=== PATIENT | female | born 1950 ===

== ENCOUNTER 2016-11-25 18:23 | Emergency (ER) | payer MEDICARE, MEDICAID ==
[2016-11-25] MEDS ORDERED: 0.9 % SODIUM CHLORIDE 1,000 ML BAG IV ONE (18:43)
--- NOTE | 2016-11-25 18:47 | Emergency Department Record ---
History of Present Illness - General Chief Complaint: Abdominal Pain Stated Complaint: SWOLLEN PAINFUL ABD/ LIVER FAILURE Time Seen by Provider: 11/25/16 18:42 Source: Patient Mode of Arrival: Ambulatory Limitations: No limitations - History of Present Illness Initial Comments: 66 yo female presents with abdominal pain and lower leg edema over the last 2 months. The patient has a history of liver cirrhosis of unknown etiology. Over the last few months she has had some increase in abdominal distension and lower leg symmetric swelling. She had out patient venous dopplers that were negative. No fevers or chills. No nausea or vomiting. She has chronic diarrhea from her long history of Crohn's disease. She is concerned because of the edema in the legs and she is in between PCP's. MD Complaint: Abdominal pain -: Week(s) Location: Diffuse Radiation: Other Migration to: Other Severity: Mild Quality: Aching Improves With: Nothing Worsens With: Nothing - Related Data Home Medications Medication Instructions Recorded Confirmed Last Taken Albuterol Sulfate [Ventolin Hfa] 1 puff IH ASDIR 11/25/16 11/25/16 Unknown Beclomethasone Dipropionate [Qvar 8.7 gm IH ASDIR 11/25/16 11/25/16 Unknown 80 Mcg Inhaler] Citalopram Hydrobromide [Celexa] 40 mg PO DAILY 11/25/16 11/25/16 Unknown Clonazepam [Klonopin] 0.5 mg PO QHS 11/25/16 11/25/16 Unknown Cyanocobalamin (Vitamin B-12) 1,000 mcg IJ MONTHLY 11/25/16 11/25/16 Unknown [Cyanocobalamin Injection] Folic Acid 1 mg PO DAILY 11/25/16 11/25/16 Unknown Loperamide HCl [Imodium A-D] 2 mg PO ASDIR 11/25/16 11/25/16 Unknown Loratadine [Claritin] 10 mg PO DAILY 11/25/16 11/25/16 Unknown Mesalamine [Pentasa] 500 mg PO BID 11/25/16 11/25/16 Unknown Omeprazole [Prilosec] 20 mg PO DAILY 11/25/16 11/25/16 Unknown Potassium Chloride 20 meq PO Q8H 11/25/16 11/25/16 Unknown Ranitidine HCl [Zantac] 150 mg PO DAILY 11/25/16 11/25/16 Unknown Rivaroxaban [Xarelto] 10 mg PO DAILY 11/25/16 11/25/16 Unknown Sucralfate [Carafate] 1 gm PO DAILY 11/25/16 11/25/16 Unknown Previous Rx's Medication Instructions Recorded Furosemide [Lasix] 20 mg PO DAILY #14 tablet 11/25/16 Potassium Chloride [Klor-Con M20] 20 meq PO DAILY #7 tab.er.prt 11/25/16 Allergies Allergy/AdvReac Type Severity Reaction Status Date / Time aspirin Allergy PT UNSURE Verified 11/25/16 18:59 OF REACTION Penicillins Allergy HIVES Verified 11/25/16 18:59 sulfamethoxazole Allergy BLISTERS Verified 11/25/16 18:59 [From Bactrim] trimethoprim [From Bactrim] Allergy BLISTERS Verified 11/25/16 18:59 Review of Systems Constitutional: Denies: Chills, Fever, Weakness Eyes: Denies: Eye discharge, Photophobia ENT: Denies: Congestion, Throat pain Respiratory: Denies: Cough, Hemoptysis, Stridor Cardiovascular: Reports: As per HPI, Edema. Denies: Chest pain, Palpitations, Syncope Endocrine: Reports: Fatigue Gastrointestinal: Reports: As per HPI, Abdominal pain, Diarrhea. Denies: Constipation, Hematemesis, Hematochezia, Melena, Nausea, Vomiting Genitourinary: Denies: Dysuria, Urgency Musculoskeletal: Denies: Arthralgia, Joint swelling, Myalgia, Neck pain Skin: Denies: Bruising, Change in color, Pruritus Neurological: Denies: Confusion, Headache, Numbness Psychiatric: Denies: Anxiety Hematological/Lymphatic: Denies: Blood Clots, Easy bleeding, Easy bruising, Swollen glands Physical Exam - General General Appearance: Alert, Oriented x3, No acute distress Limitations: No limitations - Head Head exam: Atraumatic, Normocephalic, Normal inspection - Eye Eye exam: PERRL. negative: Conjunctival injection, Periorbital swelling - ENT ENT exam: Normal exam, Mucous membranes moist Ear exam: Normal external inspection Nasal Exam: Normal inspection Mouth exam: Normal external inspection Teeth exam: Normal inspection Throat exam: Normal inspection - Neck Neck exam: Normal inspection, Full ROM. negative: Tenderness - Respiratory Respiratory exam: Normal lung sounds bilaterally. negative: Decreased breath sounds, Respiratory distress, Rhonchi, Stridor, Wheezes - Cardiovascular Cardiovascular Exam: Regular rate, Normal rhythm, Normal heart sounds - GI/Abdominal GI/Abdominal exam: Soft, Tenderness (mild diffuse, very soft and non distended) . negative: Distended, Guarding, Rebound, Rigid - Rectal Rectal exam: Deferred - exam: Deferred - Extremities Extremities exam: Normal inspection, Full ROM, Normal capillary refill, Pedal edema (bilateral +2 edema). negative: Tenderness - Back Back exam: Reports: Normal inspection, Full ROM. Denies: CVA tenderness (R), CVA tenderness (L), Muscle spasm, Rash noted, Tenderness - Neurological Neurological exam: Alert, Normal gait, Oriented X3. negative: Altered - Psychiatric Psychiatric exam: Normal affect, Normal mood. negative: Agitated, Anxious - Skin Skin exam: Dry, Intact, Normal color, Warm Course - Reevaluation(s) Reevaluation #1: The EMR was reviewed. No recent prior visits or labs. 11/25/16 18:46 Reevaluation #2: The remaining labs were reviewed She does have trace protein in the urine and low albumin and serum protein likely contributing to her edema She will be sent home on lasix and potassium with referral to local PCP and recommendation for GI follow up this week regarding her chronic liver disease 11/25/16 20:37 Medical Decision Making - Lab Data Result diagrams: 11/25/16 19:05 11/25/16 19:05 Disposition Disposition: Discharge Clinical Impression: Edema, Chronic liver disease Disposition: Home, Self-Care Condition: (1) Good Instructions: Leg Edema (ED), Cirrhosis (ED) Additional Instructions: Call your GI doctor tomorrow Take the Lasix and Potassium as directed You will need to call for a new family doctor this week Prescriptions: Furosemide [Lasix] 20 mg PO DAILY #14 tablet Potassium Chloride [Klor-Con M20] 20 meq PO DAILY #7 tab.er.prt Forms: Patient Portal Access Time of Disposition: 20:40
[2016-11-25 19:13] LABS: HEMATOCRIT 35.7 % (35.0-47.0); HEMOGLOBIN 12.1 gm/dl (11.6-16.0); MEAN CELL VOLUME 91.8 fl (81-97); MEAN CORPUSCULAR HEMOGLOBIN 31.1 pg (27-33); MEAN CORPUSCULAR HGB CONC 33.9 g/dl (32-36); MEAN PLATELET VOLUME 11.2 fl (7.4-10.4); PLATELET COUNT 88 K/uL (130-400); RED BLOOD COUNT 3.89 M/uL (3.80-5.40); RED CELL DISTRIBUTION WIDTH 17.2 % (11.5-14.5); WHITE BLOOD COUNT W/O DIFF 5.8 K/uL (4.2-12.2)
[2016-11-25 19:23] LABS: ALBUMIN 2.3 gm/dL (3.5-5.0); ALKALINE PHOSPHATASE 113 U/L (38-126); ALT/SGPT 38 U/L (9-52); ANION GAP 1.6 (7-16); AST/SGOT 50 U/L (14-36); BILIRUBIN,TOTAL 2.36 mg/dL (0.2-1.3); BLOOD UREA NITROGEN 5 mg/dL (7-17); CARBON DIOXIDE 22.4 mmol/L (22-30); CREATININE 0.8 mg/dL (0.52-1.04); EST GLOMERULAR FILTRATION RATE > 60 ml/min; GLUCOSE,RANDOM 96 mg/dL (70-110); LIPASE 211 U/L (23-300); TOTAL PROTEIN 5.5 gm/dL (6.3-8.2)
[2016-11-25 19:40] LABS: PLATELET ESTIMATE DECREASED (NORMAL)
[2016-11-25 19:42] LABS: INR 1.73; PARTIAL THROMBOPLASTIN TIME 49.4 SECONDS (24.5-39.1); PROTHROMBIN TIME (PATIENT) 19.6 SECONDS (9.5-12.1)
[2016-11-25 20:22] LABS: THYROID STIMULATING HORMONE 0.96 uIU/ml (0.465-4.68)
[2016-11-25 20:30] LABS: URINE APPEARANCE CLOUDY; URINE BILIRUBIN NEGATIVE (NEGATIVE); URINE BLOOD SMALL (NEGATIVE); URINE COLOR ORANGE; URINE GLUCOSE (UA) NEGATIVE (NEGATIVE); URINE KETONE NEGATIVE (NEGATIVE); URINE LEUKOCYTE ESTERASE NEGATIVE (NEGATIVE); URINE NITRITE NEGATIVE (NEGATIVE); URINE PROTEIN TRACE (NEGATIVE)
[2016-11-25 20:41] LABS: URINE WBC NONE SEEN (0-2/hpf)
[2016-11-25 20:44] LABS: URINE BACTERIA NONE SEEN
== END 2016-11-25 21:32 | disposition home or self-care (01) ==
LOC: ER 18:23
DX: R60.0 Localized edema (principal); K76.9 Liver disease, unspecified; R10.31 Right lower quadrant pain; R41.0 Disorientation, unspecified
CPT/HCPCS: 80048; 80076; 81001; 82140; 83690; 83880; 84443; 85027; 85610; 85730; 99284